=== PATIENT | male | born 1970 | race African-American/Black ===

== ENCOUNTER 2017-06-05 08:25 | Emergency (ER) | payer SELFPAY ==
[2017-06-05 08:28] VITALS: BP 149/77; PULSE 88; RESP 16; TEMP 98.2; O2SAT 98
--- NOTE | 2017-06-05 08:47 | PD ---
HPI Chief Complaint: Pain: Acute or Chronic Time Seen by Provider: 08:46 Travel History International Travel<30 days: No Contact w/Intl Traveler<30days: No Traveled to known affect area: No History of Present Illness HPI 46-year-old -[place] male presents emergency department status post slip and fall 3 days ago. Patient states he is a [employer] restaurant Monday night when he tried to jump over a puddle, slipped, and hyper flexed his right knee landing on top of it. He now has pain and swelling and decreased ability to ambulate in the right knee. Pain is currently 8 out of 10. He denies numbness or tingling. There does not appear to be loss of function, just decreased range of motion secondary to pain. There is no abrasion or open wound. Patient has no other injuries. Patient has no known drug allergies. PFSH Social History Alcohol Use: Yes Tobacco Use: No Substance Use: No Allergies-Medications (Allergen,Severity, Reaction): Coded Allergies: No Known Allergies (Unverified , 06/05/17) Reported Meds & Prescriptions Reported Meds & Active Scripts Active Tramadol (Tramadol HCl) 50 Mg Tab 50 Mg PO Q6H PRN Ibuprofen 800 Mg Tab 800 Mg PO Q8H PRN Review of Systems Except as stated in HPI: all other systems reviewed are Neg General / Constitutional: No: Fever Eyes: No: Visual changes HENT: No: Headaches Cardiovascular: No: Chest Pain or Discomfort Respiratory: No: Shortness of Breath Gastrointestinal: No: Abdominal Pain Genitourinary: No: Dysuria Musculoskeletal: Positive: Arthralgias, Limited ROM, Pain Skin: No Rash Neurologic: No: Weakness Psychiatric: No: Depression Endocrine: No: Polydipsia Hematologic/Lymphatic: No: Easy Bruising Physical Exam Narrative GENERAL: Patient is in moderate distress. SKIN: Warm and dry. Normal color. Normal turgor. HEAD: Atraumatic. Normocephalic. EYES: Pupils equal and round. No scleral icterus. No injection or drainage. ENT: No nasal bleeding or discharge. Mucous membranes pink and moist. Pharynx is clear. Airways patent NECK: Trachea midline. Supple and nontender. CARDIOVASCULAR: Regular rate and rhythm. RESPIRATORY: No accessory muscle use. Clear to auscultation. Breath sounds equal bilaterally. MUSCULOSKELETAL: Extremities without clubbing, cyanosis, or edema. Patient has obvious right knee effusion. Patient has significant pain with palpation or any movement in the suprapatellar region. The exam is limited secondary to patient's pain. Patient has normal neurovascular exam distal to the right knee. NEUROLOGICAL: Awake and alert. No obvious cranial nerve deficits. Motor grossly within normal limits. Five out of 5 muscle strength in the arms and legs. Normal speech. PSYCHIATRIC: Appropriate mood and affect; insight and judgment normal. Data Data Last Documented VS Vital Signs Date Time Temp Pulse Resp B/P (MAP) Pulse Ox O2 Delivery O2 Flow Rate FiO2 06/05/17 08:28 98.2 88 16 149/77 (101) 98 Orders Orders Knee, Complete (4vws) (06/05/17 08:57) Ice/Cold Pack (06/05/17 08:57) Splint Or Brace Apply/Monitor (06/05/17 08:57) Crutches (06/05/17 08:57) Ibuprofen (Motrin) (06/05/17 09:00) Acetaminophen (Tylenol) (06/05/17 09:00) Ed Discharge Order (06/05/17 10:40) Immobilizer Knee 20 Inch (06/05/17 ) [facility] Medical Decision Making Medical Screen Exam Complete: Yes Emergency Medical Condition: Yes Medical Record Reviewed: Yes Differential Diagnosis Knee sprain. Torn ligament. Fracture. Narrative Course Patient is in moderate distress. X-ray of the right knee is ordered. Patient is given 800 mg ibuprofen and 1000 mg acetaminophen p.o. Ice is applied to the right knee. Knee immobilizer is applied. X-ray shows: CONCLUSION: 1. Lucency through the lateral aspect of the patella is most characteristic of a bipartite configuration despite the recent history of trauma. Cannot exclude some diastases of the bipartite fragment associated with the recent injury, however. No priors for comparison. 2. Moderate sized suprapatellar effusion. No long bone fracture. Call to Dr. Campa, orthopedic on-call, is placed. Diagnosis Primary Impression: Injury of right patella Qualified Codes: S89.91XA - Unspecified injury of right lower leg, initial encounter Referrals: Nathan Campa MD Patient Instructions: Crutch Instructions (ED), General Instructions, Knee Immobilizer (DC) Departure Forms: Work Release Special Instructions: Patient must wear knee immobilizer and use crutches until cleared by orthopedist. Med/Other Pt SpecificInfo: Prescription(s) given Scripts Tramadol (Tramadol) 50 Mg Tab 50 MG PO Q6H Y for PAIN, #20 TAB 0 Refills Prov: Olivia Saldana MD 06/05/17 Ibuprofen (Ibuprofen) 800 Mg Tab 800 MG PO Q8H Y for Pain/Inflammation, #60 TAB 0 Refills Prov: Olivia Saldana MD 06/05/17 Disposition: 01 DISCHARGE HOME Condition: Stable Frankie Parmar Jun 05, 2017 08:47
[2017-06-05] MEDS ORDERED: ACETAMINOPHEN 500 MG CPLT PO ONE (09:00)
[2017-06-05] MEDS ORDERED: IBUPROFEN 800 MG TAB PO ONE (09:00)
--- NOTE | 2017-06-05 09:40 | RADRPT ---
EXAM DATE/TIME: 06/05/2017 09:08 [place] COMPARISON: No previous studies available for comparison. INDICATIONS : Slipped and caught leg under himself when he fell down. Pain on anterior aspect. MEDICAL HISTORY : None. SURGICAL HISTORY : None. ENCOUNTER: Initial ACUITY: 1 day PAIN SCORE: 10/10 LOCATION: Right Knee. FINDINGS: Four view examination of the right knee demonstrates lucency through the superior lateral aspect of t he patella. Configuration is most characteristic of a bipartite accessory ossification despite the re cent history of trauma. No significant disc soft tissue swelling but there is a moderate-sized suprap atellar effusion. CONCLUSION: 1. Lucency through the lateral aspect of the patella is most characteristic of a bipartite configurat ion despite the recent history of trauma. Cannot exclude some diastases of the bipartite fragment ass ociated with the recent injury, however. No priors for comparison. 2. Moderate sized suprapatellar effusion. No long bone fracture. Walter Worthington MD on June 05, 2017 at 9:32 Board Certified Radiologist. This report was verified electronically.
[2017-06-05] MEDS ORDERED: TRAM50TA PO (10:28)
[2017-06-05] MEDS ORDERED: IBUP1TAB7 PO (10:28)
[2017-06-05] MEDS ORDERED: PRED10PA PO (10:30)
[2017-06-05] MEDS ORDERED: EPIN1INJ19 IM (10:30)
[2017-06-05] MEDS ORDERED: DIPH25CA PO (10:30)
[2017-06-05] MEDS ORDERED: RANI150T PO (10:30)
== END 2017-06-05 11:02 | disposition home or self-care (01) ==
LOC: NEPD 08:25
DX: S89.91XA Unspecified injury of right lower leg, initial encounter (principal); M25.461 Effusion, right knee; W01.0XXA Fall on same level from slipping, tripping and stumbling without subsequent striking against object, initial encounter; Y92.511 Restaurant or cafe as the place of occurrence of the external cause
CPT/HCPCS: 73564; 99283; E0113; L1830